=== PATIENT | male | born 1945 | race Caucasian/White ===

== ENCOUNTER 2016-07-06 16:35 | Inpatient (IN) | payer MEDICARE, OTHER ==
--- NOTE | ~2016-07-06 | OP ---
Record Of Operation [facility] [address] [place]. [address] NAME: TREMAYNE MADISON : 45 STATUS : ADM IN PAT#: [id number] AGE: 70 ADM/REG DATE : 07/06/16 MR#: [id number] REPORT SERV DATE: 07/09/16 DICTATED BY: CHALO WISE DATE: 07/09/16 REPORT STATUS : Draft TRANSCRIBED BY: MODL DATE: 07/09/16 DATE OF PROCEDURE: 07/09/2016 INDICATION: Acute coronary syndrome in a patient with previous bypass. PROCEDURE: Left heart catheterization, coronary arteriography, saphenous vein graft arteriography, left internal mammary arteriography, PCI/stent of mid LAD through left internal mammary artery bypass graft. DESCRIPTION OF PROCEDURE: After informed consent was obtained, the patient was taken in a fasting state to the cardiac catheterization laboratory, where he was prepped and draped in sterile fashion. IV moderate sedation was obtained using intravenous Versed and Fentanyl. The right inguinal region was anesthetized using 1% Xylocaine. The right femoral artery was then entered using a front wall approach and cannulated with a 6-Prydeinig arterial sheath. A 6-Prydeinig internal mammary artery catheter was then used to engage the left internal mammary artery to the mid LAD. Angiogram was obtained. This catheter was then used to engage the [place] right coronary artery. An angiogram of this vessel was obtained. This catheter was then withdrawn and the short 6-Prydeinig arterial sheath was exchanged over the wire for a long 6-Prydeinig arterial sheath. A 6-Prydeinig JL4 diagnostic catheter was then used to engage the left main coronary artery. Serial angiograms were obtained. This catheter was then exchanged for a 6-Prydeinig multipurpose catheter, which was used to engage the saphenous vein graft to the posterior descending artery. Saphenous vein graft to the obtuse marginal artery is known to be occluded and was not selectively engaged. RESULTS OF DIAGNOSTIC ANGIOGRAPHY: HEMODYNAMICS: Aorta 140/60 with a mean pressure 85 mmHg, left ventricle 140/11 with end- diastolic pressure of 24 mmHg. CORONARY ANATOMY: 1. Left main coronary artery: The left main coronary artery arises normally from left coronary cusp. This vessel is free of significant disease. 2. Left anterior descending artery: The left anterior descending artery arises normally from left main coronary artery. This vessel is subtotally occluded after the first diagonal artery. 3. Left internal mammary artery to the mid LAD is widely patent. However, there is a 90% stenosis in the [place] vessel just distal to the anastomosis. 4. Ramus intermedius: The ramus intermedius arises normally from left main coronary artery. This vessel has a 50% proximal stenosis. 5. Left circumflex artery: The left circumflex artery arises normally from the left main coronary artery. This is a small nondominant vessel which is diffusely diseased throughout with lesions of 80% to 90%. 6. Right coronary artery: The right coronary artery arises normally from the right coronary cusp. This vessel is subtotally occluded proximally. Significant collateral filling of the distal right coronary artery is visualized via the left anterior descending artery. Record Of Operation [place] [id number] [facility] [place]. [address] NAME: TREMAYNE MADISON : 45 STATUS : ADM IN PAT#: [id number] AGE: 70 ADM/REG DATE : 07/06/16 MR#: [id number] REPORT SERV DATE: 07/09/16 DICTATED BY: CHALO WISE DATE: 07/09/16 REPORT STATUS : Draft TRANSCRIBED BY: MODSammi DATE: 07/09/16 After the above findings, it was decided to proceed with PCI and stenting of the mid LAD via the left internal mammary artery graft. A 6-Prydeinig internal mammary artery guiding catheter was used with ChoICE PT 0.014 x 182 cm extra support wire across the lesion. A [employer] Emerge 2.0 x 15 mm balloon was then introduced. Two overlapping inflations were performed at 6 atmospheres for 20 seconds each. This balloon was then withdrawn and a [employer] REBEL 2.25 x 20 mm bare-metal stent was carefully positioned, deployed using 11 atmospheres for 30 seconds. Additional inflation was performed at 18 atmospheres for 30 seconds (diameter of 2.25 mm). Repeat angiography revealed a 0% residual stenosis with no dissection, flap, thrombus, embolization, or occlusion apparent. There was JOAN-3 grade flow following the procedure and improved flow to the distal right coronary artery via collaterals. COMPLICATIONS: There were no apparent complications. CONCLUSIONS: 1. Severe [place] vessel coronary artery disease as described above. 2. Occluded saphenous vein grafts to posterior descending artery and obtuse marginal artery. 3. Patent [place] to mid LAD. 4. Successful PCI/stent of the [place] mid LAD via left internal mammary artery bypass graft. 80-90% stenosis reduced to 0% stenosis using a [employer] REBEL 2.25 x 20 mm bare-metal stent post dilated to 2.5 mm. 5. No apparent complications. /KALEY Chalo Wise M.D., [facility] / [id number] CC: Chalo Wise M.D., [facility] Leslee Richardson MD
--- NOTE | ~2016-07-06 | DS ---
Discharge Summary [facility] [address] [place]. [address] NAME: TREMAYNE MADISON : 45 STATUS : DIS IN PAT#: [id number] AGE: 70 ADM/REG DATE : 07/06/16 MR#: [id number] REPORT SERV DATE: 07/21/16 DICTATED BY: CHALO WISE DATE: 07/20/16 REPORT STATUS : Draft TRANSCRIBED BY: MODSammi DATE: 07/20/16 Data Collection from hospitalization DISCHARGE DIAGNOSES: 1. Acute coronary syndrome. 2. Coronary artery disease. 3. Heart failure-ejection fraction-acute on chronic. 4. Paroxysmal atrial fibrillation. 5. Mitral regurgitation. 6. Type 2 diabetes mellitus. 7. Hypertension. 8. Hyperlipidemia. 9. Mild cerebrovascular disease. 10.Stage 3 chronic kidney disease. 11.History of testicular cancer. 12.Gastroesophageal reflux disease. 13.History of skin cancer. 14.Anemia. 15.History of myocardial infarction. 16.Degenerative disk disease. CONSULTATION: Jeannette Khan NP PROCEDURES PERFORMED: Left heart catheterization, coronary arteriography, saphenous vein graft arteriography, left internal mammary arteriography, percutaneous coronary intervention/stent of the mid LAD through left internal mammary artery bypass graft, 07/09/2016. DISCHARGE MEDICATIONS: Tylenol 1000 mg twice a day as needed, Zyloprim 300 mg daily, Eliquis 5 mg twice a day, Bumex 1 mg daily, Coreg 3.125 mg twice a day, vitamin D 1000 units daily, Plavix 75 mg daily, Cartia XT 120 mg daily, ferrous sulfate 325 mg daily, Glucotrol 2.5 mg twice a day, Apresoline 25 mg twice a day, Avapro 300 mg daily, Claritin 10 mg daily, Prilosec 40 mg daily, Pravachol 40 mg at bedtime. CONDITION AT DISCHARGE: Stable. DISPOSITION: The patient was discharged home on a low-sodium, low-cholesterol, cardiac diet with activities as instructed. He would follow up with me, 08/03/2016. He would follow up with Dr. Matteo Lewis, 07/13/2016. HOSPITAL COURSE: This is a 70-year-old man, who I have followed for paroxysmal atrial fibrillation and coronary artery disease. The patient reports that he had been doing well and in fact, he was seen in the office three weeks prior to this admission and he had no complaints. He said that approximately three days prior to this admission, he began to experience increasing shortness of breath with orthopnea and paroxysmal nocturnal dyspnea. He denied any syncope or presyncope. He had noticed some tachy palpitations. He denied chest pain, but did have some shoulder pain. EKG was significant for atrial fibrillation with PVCs. There were nonspecific ST-T wave abnormalities. There was no acute injury Discharge Summary [address] [place]. [address] NAME: TREMAYNE MADISON : 45 STATUS : DIS IN PAT#: [id number] AGE: 70 ADM/REG DATE : 07/06/16 MR#: [id number] REPORT SERV DATE: 07/21/16 DICTATED BY: CHALO WISE DATE: 07/20/16 REPORT STATUS : Draft TRANSCRIBED BY: KALEY DATE: 07/20/16 pattern and no evidence of recent or remote myocardial infarction. Troponin was elevated at 0.06. Creatinine level was 1.91. He was felt to have congestive heart failure and atrial fibrillation with rapid ventricular response. He has chronic kidney disease and hypertension. Diuresis was going to be performed as well as rate control. We would check serial troponins and an echocardiogram. It was felt that he may require a cardiac catheterization depending on his clinical course. He was admitted to the hospital at this time for further evaluation and treatment. Upon admission, serial troponins would be obtained. Rate control was being provided. The following day, he did have some shoulder pain. His lungs were clear. He had 1 to 2+ lower extremity edema. Troponin was 0.06. Echocardiogram was performed. He was seen by Jeannette Khan regarding left shoulder pain. The patient had had no relief of his left shoulder pain with oral pain medication. We were unable to provide morphine for pain control. He is allergic to sulfa. We were going to use low-dose Dilaudid if his pain was unable to be released by oral pain medications. He said that he has a history of injuring that shoulder and had had limited range of motion since that time. His heart rate had been in the 70s and he had no shortness of breath. IV hydralazine would be given as needed for systolic blood pressure greater than 170 or diastolic greater than 90. Baseline creatinine is 1.9. He does have stage 3 chronic kidney disease. BMP was going to be ordered as well as gentle IV fluid hydration in preparation for cardiac catheterization. Glipizide was discontinued and he was placed on level 2 sliding scale insulin. Hemoglobin A1c was going to be checked. On the , he said he had good pain control with oral medications. Currently, his pain was a 3/10. Sliding scale insulin continued. On the , INR level was 1.7. He had no edema. His lungs were clear. He was taken to the cardiac medical laboratory specialist, where he underwent the above- mentioned procedure. He tolerated this well and there were no complications. Discharge planning was performed. On 07/10/2016, he said he felt much better. He had no new complaints. Discharge instructions were given. Due to his improved and stable condition, he was discharged home with the above-stated instructions. Information collected by: Payal Fierro I submit the above information as my discharge summary. TG/MODL Chalo Wise M.D., [facility] / [id number] CC: Chalo Wise M.D., [facility] [place]
--- NOTE | ~2016-07-06 | CN ---
Consultation Report [facility] [address] [place]. [address] NAME: TREMAYNE MADISON : 45 STATUS : ADM IN PAT#: [id number] AGE: 70 ADM/REG DATE : 07/06/16 MR#: [id number] REPORT SERV DATE: 07/08/16 DICTATED BY: DATE: REPORT STATUS : Draft TRANSCRIBED BY: MODL DATE: 07/07/16 CONSULTATION NOTE. DATE OF CONSULTATION: 07/07/2016 REASON FOR CONSULTATION: Left shoulder pain. IDENTIFYING DATA: PRIMARY CARE PHYSICIAN: Leslee Richardson M.D. CARDIOLOGY: Chalo Brunner M.D., [facility]. RENAL: Johnathan Frazier M.D. HISTORY OF PRESENT ILLNESS: This is a 70-year-old male, who has been admitted to the hospital for paroxysmal atrial fibrillation with RVR who had been experiencing increasing shortness of breath during the day and at bedtime. The patient had also stated some palpations. Please see admitting H and P by Dr. Chalo Brunner on 07/06/2016. Upon admission last night, the patient had been pulling himself up in the bed and states he had tearing shoulder pain. The patient states he has history of pain in that shoulder that extends back to over 40 years ago when it was hurt and he has had limited range of motion since then. He has never had any type of generalized examination besides getting a steroid shot years ago and has limited his activity with that arm. The patient also has a history of coronary artery disease and is status post bypass. The patient will be going for a heart catheterization tomorrow to evaluate his paroxysmal atrial fib. The patient's history was obtained through careful interview with the patient and his coupled with review in [facility] and [facility]. PAST MEDICAL HISTORY: Significant for hypertension, hyperlipidemia, coronary artery disease, mild cerebrovascular disease, chronic kidney disease stage 3, paroxysmal atrial fib, testicular cancer, GI bleed, renal stents, GERD, skin cancer, anemia, CA, degenerative disc disease, diabetes mellitus type 2, and CHF. HOME MEDICATIONS: The patient is on Tylenol 1000 mg twice daily for pain; allopurinol 300 mg daily; Bumex 1 mg daily; vitamin D 1000 units daily; Diltiazem ER 120 mg daily; Pepcid 40 mg twice daily; ferrous sulfate 325 mg daily; Glucotrol 2.5 mg p.o. twice daily; hydralazine 25 mg twice daily; Avapro 300 mg daily; Claritin 10 mg daily; omeprazole 40 mg; Pravachol 40 mg; dmcz-pbi-rmrycwo potassium; Coumadin 3 mg on Saturdays and 5 mg on Wednesday, Wednesday, Wednesday, and Wednesday. ALLERGIES: THE PATIENT STATES ALLERGY TO SULFA IN WHICH HE GETS HIVES. 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 He lives Consultation [address] [address] NAME: TREMAYNE MADISON : 45 STATUS : ADM IN [facility]#: [id number] AGE: 70 ADM/REG DATE : 07/06/16 MR#: [id number] REPORT SERV DATE: 07/08/16 DICTATED BY: DATE: REPORT STATUS : Draft TRANSCRIBED BY: MODL DATE: 07/07/16 with his spouse and states that he walks regularly. The patient denies illicit drug use, tobacco use or alcohol use. FAMILY HISTORY: Mother had arthritis, and of lung cancer due to tobacco. Father had a CABG at age 65 and at age 75 of an CA. PAST SURGICAL HISTORY: The patient has had a CABG, left orchidectomy 31 years ago with radiation, left partial nephrectomy 28 years ago due to atrophy, cholecystectomy, COA, stents in both kidneys, tonsils and adenoids removed, the patient states current pain in his left shoulder is constant. REVIEW OF SYSTEMS: Full 10-point review of systems was obtained with pertinent positives mentioned in the HPI. PHYSICAL EXAMINATION: VITAL SIGNS: From today, blood pressure 163/84, O2 saturation 96% on room air, respirations 18, heart rate is 70, and temp is 97.0. GENERAL: The patient is an obese male, resting in bed, in no acute distress. NEUROLOGIC: Head is atraumatic and normocephalic. The patient is extremely hard of hearing in both ears. The patient is alert and oriented x3. Cranial nerves 2 through 12 are grossly intact. NECK: Supple. Trachea is midline. Neck veins are flat. No obvious thyromegaly or lymphadenopathy. EENT: Sclerae are nonicteric. Pupils are equal, round, reactive to light and accommodation. Nares are patent. Mucous membranes are moist. Extraocular muscles within normal limits. Tongue is midline without deviation. CHEST: Chest has no pain with palpation. LUNGS: Clear to auscultation bilaterally with normal respiratory effort. CARDIOVASCULAR: S1 and S2 with no obvious murmurs, rubs, or gallops. Rhythm is irregularly irregular. ABDOMEN: Soft and nontender with active bowel sounds. No palpable organomegaly. Last bowel movement was on 07/07/2016. EXTREMITIES: No significant edema, clubbing, or cyanosis. Pedal pulses are present and equal bilaterally. SKIN: Skin is warm and dry with no unusual rashes or skin lesions. Normal color and turgor. PSYCH: The patient is pleasant and cooperative. LABORATORY DATA: Labs from 07/06/2016: Sodium is 144, potassium is 3.9, chloride is 110, BUN is 33, creatinine is 1.91, GFR is 40, glucose 138, calcium is 8.9, and magnesium is 2.1. WBC is 7.1, hemoglobin is 12.4, hematocrit is 38.3, and platelets are 160. INR is 2.2. Troponin is 0.06. ASSESSMENT AND PLAN: Consultation Report [place] [id number] [facility] [place]. [address] NAME: TREMAYNE MADISON : 45 STATUS : ADM IN [facility]#: [id number] AGE: 70 ADM/REG DATE : 07/06/16 MR#: [id number] REPORT SERV DATE: 07/08/16 DICTATED BY: DATE: REPORT STATUS : Draft TRANSCRIBED BY: MODL DATE: 07/07/16 1. Left shoulder pain, acute on chronic. The patient is allergic to sulfa, and the patient has had no relief with any p.o. pain medicines, so we are unable to provide morphine for pain control. The patient is uncertain as to whether he has ever had this before, but states he gets hives with sulfa, so we are using low-dose Dilaudid if unable to be relieved by p.o. pain medicine. The patient states he has had a history of injuring that shoulder before and has had limited range of motion since that time. 2. Atrial fibrillation with rapid ventricular response. The patient's heart rate has been in the 70s and has no shortness of breath. 3. Congestive heart failure. We have ordered a BMP and Mag in the morning. 4. Hypertension. The patient's blood pressures have been 163/84, 172/79, 154/101. The patient is on multiple medications for this including diltiazem, irbesartan, and hydralazine. We have ordered IV hydralazine p.r.n. for any systolic blood pressure greater than 170 or diastolic greater than 90. 5. Chronic kidney disease, stage 3, with baseline creatinine of 1.9. The patient's creatinine is at baseline. The patient's baseline BUN is 35 and is at baseline. The patient's GFR is 38 and is currently at baseline. We have ordered BMP as well as gentle IV fluid hydration and preparation for his heart catheterization tomorrow. We are discontinuing his glipizide and starting him on sliding scale level 2. 6. Diabetes mellitus type 2. We are ordering an A1c in the morning as well as using sliding scale insulin level 2 at a.c. and h.s. and 0200 hours, and discontinuing his glipizide. We would like to take the time to thank you for this consultation. We would recommend an Orthopedic consult upon discharge and when cleared by Dr. Brunner. We will continue to follow this patient with you until it is time for him to be discharged. Please let us know if we can be of any further assistance. SLC/MODL Jeannette Khan NP / [id number] CC: Chalo Brunner M.D., [facility] Leslee Richardson MD
--- NOTE | ~2016-07-06 | HP ---
History And Physical [place] [id number] [facility] [place]. [address] NAME: TREMAYNE LIN : 45 STATUS : ADM IN [facility]#: [id number] AGE: 70 ADM/REG DATE : 07/06/16 MR#: [id number] REPORT SERV DATE: 07/07/16 DICTATED BY: CHALO WISE DATE: 07/07/16 REPORT STATUS : Draft TRANSCRIBED BY: MODL DATE: 07/07/16 DATE OF ADMISSION: 07/06/2016 HISTORY OF PRESENT ILLNESS: Mr. Tremayne Lin is a 70-year-old gentleman who I follow for paroxysmal atrial fibrillation and coronary artery disease. The patient reports that he had been doing well, in fact I saw him in the office three weeks ago and he was without complaints, he states that approximately three days ago he began experiencing increasing shortness of breath with orthopnea and paroxysmal nocturnal dyspnea. He denies any syncope or presyncope. He has noticed some tachy palpitations. He denies any chest pain but has noted some shoulder pain. REVIEW OF SYSTEMS: As above, otherwise, noncontributory. Patient specifically denies any gastrointestinal, genitourinary or neurologic complaints. FAMILY HISTORY: Noncontributory. MEDICATIONS: Prior to admission, see list. PAST MEDICAL HISTORY: As noted above. Significant for coronary artery disease. The patient is status post previous bypass. He also has history of hypertension and hyperlipidemia. He has a history of mild cerebrovascular disease. He has chronic kidney disease. He has paroxysmal atrial fibrillation which has been more troublesome in the last year or two. The patient is status post left testicular cancer. He is status post left partial nephrectomy. SOCIAL HISTORY: The patient does not smoke. ALLERGIES: THE PATIENT REPORTS ALLERGIES TO SULFA. HE HAD A PREVIOUS GI BLEED AND HAS BEEN HESITANT TO TAKE ASPIRIN. PHYSICAL EXAMINATION: VITAL SIGNS: On admission, blood pressure 177/86, pulse 94, respiratory rate 20. The patient is afebrile. GENERAL: This is a well-developed, well-nourished, 70-year-old, white male, alert and oriented x3 in no acute distress. NECK: No jugular venous distention, hepatojugular reflux. CARDIOVASCULAR: Normal rate with irregular rhythm. 1/6 holosystolic murmur which radiates to the apex. LUNGS: Diminished breath sounds in the bases. No rales are appreciated. EXTREMITIES: 1+ bilateral pitting edema. IMAGING: EKG significant for atrial fibrillation with PVCs. There are nonspecific ST-T wave abnormalities. There is no acute injury pattern and no evidence of recent or remote myocardial infarction. LABORATORY DATA: Significant for an elevated troponin at 0.06. Patient's hematocrit is History And Physical [address] [address] NAME: TREMAYNE LIN : 45 STATUS : ADM IN PAT#: [id number] AGE: 70 ADM/REG DATE : 07/06/16 MR#: [id number] REPORT SERV DATE: 07/07/16 DICTATED BY: CHALO WISE DATE: 07/07/16 REPORT STATUS : Draft TRANSCRIBED BY: KALEY DATE: 07/07/16 38.3. BUN and creatinine 33 and 1.91. ASSESSMENT: 1. Atrial fibrillation with rapid ventricular response. 2. Congestive heart failure (BNP 614). 3. Hypertension. 4. Chronic kidney disease. PLAN: 1. Diuresis. 2. Rate control. 3. Serial troponins. 4. Check echocardiogram. 5. May require cardiac catheterization depending on clinical course. /KALEY Chalo Wise M.D., [facility] / [id number] CC: Chalo Wise M.D., [facility] [place]
[2016-07-06 14:25] LABS: BASOPHILS 0.1 %; BASOPHILS ABSOLUTE 0.01 10/3/uL (0.0-0.16); EOSINOPHILS 1.8 %; EOSINOPHILS ABSOLUTE 0.13 10/3/uL (0.0-0.53); ER CBC TAT 0 Hrs 05 Mins; HEMATOCRIT 38.3 % (40.0-51.0); HEMOGLOBIN 12.4 g/dL (13.6-17.8); LYMPHOCYTES 19.6 %; LYMPHOCYTES ABSOLUTE 1.38 10/3/uL (0.67-4.30); MANUAL DIFF NO %; MEAN CORPUS HGB CONC 32.4 g/dL (32.0-36.0); MEAN PLATELET VOLUME 10.6 fL (9.2-13.0); MONOCYTES 5.1 %; MONOCYTES ABSOLUTE 0.36 10/3/uL (0.21-1.20); NEUTROPHILS 73.4 %; NEUTROPHILS ABSOLUTE 5.17 10/3/uL (2.02-8.40); PLATELET COUNT 160 10/3/uL (150-400); RBC DISTRIBUTION WIDTH 16.4 % (12.0-16.0); RED CELL COUNT 3.87 10/6/uL (4.7-6.1); WHITE BLOOD CELLS 7.1 10/3/uL (4.5-10.5)
[2016-07-06 14:33] LABS: PROTIME (NOT ORD) 22.8 SEC (12.0-14.5)
[2016-07-06 14:34] LABS: PARTIAL THROMBO TIME 38.5 SEC (22.5-37.2)
[2016-07-06 14:41] LABS: CALCIUM, SERUM 8.9 MG/DL (8.5-10.4); CHLORIDE, SERUM 110 MMOL/L (96-112); CO2 (CARBON DIOXIDE) 23 MMOL/L (24-34); CREATININE 1.91 MG/DL (0.70-1.30); GFR AFRICAN AMERICAN 40 ML/MIN (>=60); GFR NON AFRICAN AMERICAN 35 ML/MIN (>=60); POTASSIUM, SERUM 3.9 MMOL/L (3.5-5.3); SODIUM, SERUM 144 MMOL/L (135-148)
[2016-07-06 14:42] LABS: BUN (BLOOD UREA NITROGEN) 33 MG/DL (6-23); GLUCOSE, SERUM 138 MG/DL (60-99)
[2016-07-06 14:52] LABS: TROPONIN I 0.06 NG/ML (<0.05)
[2016-07-06 14:56] LABS: CHEST PAIN PROFILE TAT 0 Hrs 32 Mins
[~2016-07-06 16:35] MED LIST: ASABAYER PO; ATEN25 PO; BUM1 PO; CARDU4 PO; FISH-EPA1000 MG PO; FOLGARD PO; GLUCOTROL5 PO; KLOR-CON 88 MEQ PO; MICARDIS H80 MG/25 M PO; NORV5 PO; NTG; VITC500 PO; Z100 PO; ZOCOR80 MG PO
[2016-07-06] MEDS ORDERED: APRES25 PO (16:52)
[2016-07-06] MEDS ORDERED: GLUCOTROL5 PO (16:52)
[2016-07-06] MEDS ORDERED: CARTIA XT120 MG/24 PO (16:52)
[2016-07-06] MEDS ORDERED: C5 PO (16:53)
[2016-07-06] MEDS ORDERED: CLARIT10 PO (16:54)
[2016-07-06] MEDS ORDERED: COUMADIN3 MG PO (16:54)
[2016-07-06] MEDS ORDERED: BUM1 PO (16:54)
[2016-07-06] MEDS ORDERED: ACET500CAP PO (16:55)
[2016-07-06] MEDS ORDERED: VITAMIN D1000 UNI1 PO (16:55)
[2016-07-06] MEDS ORDERED: POTASSIUM OTC PO (16:55)
[2016-07-06] MEDS ORDERED: PRAVACHOL40 MG PO (16:55)
[2016-07-06] MEDS ORDERED: FERROUS SULF325 M1 PO (16:55)
[2016-07-06] MEDS ORDERED: PEPCID40 MG PO (16:56)
[2016-07-06] MEDS ORDERED: AVAPRO300 MG PO (16:56)
[2016-07-06] MEDS ORDERED: PRILOSEC40 MG PO (16:56)
[2016-07-06] MEDS ORDERED: Z300 PO (16:56)
[2016-07-07 06:36] LABS: INTERNATIONAL NORMAL RATI 2.2 UNITS (-); PROTIME (NOT ORD) 24.2 SEC (12.0-14.5)
[2016-07-08 04:33] LABS: BASOPHILS 0.1 %; BASOPHILS ABSOLUTE 0.01 10/3/uL (0.0-0.16); EOSINOPHILS 2.1 %; EOSINOPHILS ABSOLUTE 0.15 10/3/uL (0.0-0.53); HEMATOCRIT 34.9 % (40.0-51.0); HEMOGLOBIN 11.3 g/dL (13.6-17.8); IMMATURE GRANULOCYTES 0.6 %; IMMATURE GRANULOCYTES ABSOLUTE 0.04 10/3/uL (0.0-0.11); LYMPHOCYTES ABSOLUTE 0.99 10/3/uL (0.67-4.30); MEAN CORPUS HGB CONC 32.4 g/dL (32.0-36.0); MEAN CORPUSCULAR VOLUME 98.9 fL (80-100); MEAN PLATELET VOLUME 11.2 fL (9.2-13.0); MONOCYTES 5.9 %; MONOCYTES ABSOLUTE 0.42 10/3/uL (0.21-1.20); NEUTROPHILS 77.3 %; NEUTROPHILS ABSOLUTE 5.47 10/3/uL (2.02-8.40); PLATELET COUNT 152 10/3/uL (150-400); RBC DISTRIBUTION WIDTH 16.1 % (12.0-16.0); RED CELL COUNT 3.53 10/6/uL (4.7-6.1); WHITE BLOOD CELLS 7.1 10/3/uL (4.5-10.5)
[2016-07-08 04:35] LABS: MANUAL DIFF NO %
[2016-07-08 04:41] LABS: INTERNATIONAL NORMAL RATI 2.2 UNITS (-)
[2016-07-08 04:54] LABS: BUN (BLOOD UREA NITROGEN) 32 MG/DL (6-23); CHLORIDE, SERUM 109 MMOL/L (96-112); CHOLESTEROL 151 MG/DL (< 200); CO2 (CARBON DIOXIDE) 23 MMOL/L (24-34); CREATININE 1.75 MG/DL (0.70-1.30); GFR AFRICAN AMERICAN 45 ML/MIN (>=60); GFR NON AFRICAN AMERICAN 39 ML/MIN (>=60); GLUCOSE, SERUM 163 MG/DL (60-99); POTASSIUM, SERUM 3.9 MMOL/L (3.5-5.3); SODIUM, SERUM 142 MMOL/L (135-148)
[2016-07-08 04:55] LABS: CHOL/HDL RATIO(NOT ORDER) 2.6 (0-5); HDL CHOLESTEROL 58 MG/DL (> 39); LDL CHOLESTEROL 72 MG/DL (< 130); NON-HDL CHOLESTEROL 93 MG/DL (< 160); TRIGLYCERIDE 109 MG/DL (< 150)
[2016-07-09 05:15] LABS: BASOPHILS 0.3 %; BASOPHILS ABSOLUTE 0.02 10/3/uL (0.0-0.16); EOSINOPHILS 2.2 %; EOSINOPHILS ABSOLUTE 0.17 10/3/uL (0.0-0.53); HEMATOCRIT 32.6 % (40.0-51.0); HEMOGLOBIN 10.5 g/dL (13.6-17.8); IMMATURE GRANULOCYTES 0.1 %; IMMATURE GRANULOCYTES ABSOLUTE 0.01 10/3/uL (0.0-0.11); LYMPHOCYTES 17.4 %; LYMPHOCYTES ABSOLUTE 1.34 10/3/uL (0.67-4.30); MEAN CORPUS HGB CONC 32.2 g/dL (32.0-36.0); MEAN CORPUSCULAR VOLUME 99.4 fL (80-100); MONOCYTES ABSOLUTE 0.54 10/3/uL (0.21-1.20); NEUTROPHILS ABSOLUTE 5.63 10/3/uL (2.02-8.40); PLATELET COUNT 136 10/3/uL (150-400); RED CELL COUNT 3.28 10/6/uL (4.7-6.1); WHITE BLOOD CELLS 7.7 10/3/uL (4.5-10.5)
[2016-07-09 05:17] LABS: MANUAL DIFF NO %
[2016-07-09 05:20] LABS: INTERNATIONAL NORMAL RATI 1.7 UNITS (-)
[2016-07-09 05:25] LABS: PROTIME (NOT ORD) 19.9 SEC (12.0-14.5)
[2016-07-09 05:30] LABS: CALCIUM, SERUM 8.6 MG/DL (8.5-10.4); CHLORIDE, SERUM 107 MMOL/L (96-112); CHOL/HDL RATIO(NOT ORDER) 2.3 (0-5); CHOLESTEROL 126 MG/DL (< 200); CO2 (CARBON DIOXIDE) 22 MMOL/L (24-34); GFR AFRICAN AMERICAN 38 ML/MIN (>=60); GFR NON AFRICAN AMERICAN 33 ML/MIN (>=60); GLUCOSE, SERUM 166 MG/DL (60-99); HDL CHOLESTEROL 55 MG/DL (> 39); LDL CHOLESTEROL 57 MG/DL (< 130); NON-HDL CHOLESTEROL 71 MG/DL (< 160); POTASSIUM, SERUM 4.5 MMOL/L (3.5-5.3); SODIUM, SERUM 139 MMOL/L (135-148)
[2016-07-09 05:31] LABS: BUN (BLOOD UREA NITROGEN) 40 MG/DL (6-23); TRIGLYCERIDE 73 MG/DL (< 150)
[2016-07-09 05:33] LABS: PARTIAL THROMBO TIME 150.4 SEC (22.5-37.2)
[2016-07-10 05:17] LABS: INTERNATIONAL NORMAL RATI 1.4 UNITS (-)
[2016-07-10 05:20] LABS: PROTIME (NOT ORD) 16.6 SEC (12.0-14.5)
[2016-07-10 11:42] LABS: BUN (BLOOD UREA NITROGEN) 42 MG/DL (6-23); CALCIUM, SERUM 9.1 MG/DL (8.5-10.4); CHLORIDE, SERUM 107 MMOL/L (96-112); CO2 (CARBON DIOXIDE) 26 MMOL/L (24-34); CREATININE 2.48 MG/DL (0.70-1.30); GFR AFRICAN AMERICAN 29 ML/MIN (>=60); GFR NON AFRICAN AMERICAN 25 ML/MIN (>=60); GLUCOSE, SERUM 182 MG/DL (60-99); SODIUM, SERUM 139 MMOL/L (135-148)
[2016-07-10 11:43] LABS: POTASSIUM, SERUM 4.6 MMOL/L (3.5-5.3)
[2016-07-10] MEDS ORDERED: ELIQUIS 5 MG TAB5 MG PO (14:23)
[2016-07-10] MEDS ORDERED: COREG3 PO (14:24)
[2016-07-10] MEDS ORDERED: PLAVIX PO (14:24)
[2016-10-18] MEDS ORDERED: AVAPRO300 MG PO (01:14)
[2016-10-18] MEDS ORDERED: COREG3 PO (01:14)
[2016-10-18] MEDS ORDERED: BUM1 PO (01:15)
[2016-10-18] MEDS ORDERED: CLARIT10 PO (01:15)
[2016-10-18] MEDS ORDERED: Z300 PO (01:15)
[2016-10-18] MEDS ORDERED: GLUCOTROL5 PO (01:16)
[2016-10-18] MEDS ORDERED: MICRO-K10 MEQ PO (01:17)
[2016-10-18] MEDS ORDERED: C5 PO (01:18)
[2016-10-18] MEDS ORDERED: VITAMIN B-121000 MC1 PO (01:18)
[2016-10-18] MEDS ORDERED: CARTIA XT120 MG/24 PO (01:19)
[2016-10-18] MEDS ORDERED: COUMADIN3 MG PO (01:19)
[2016-10-18] MEDS ORDERED: PLAVIX PO (01:20)
[2016-10-18] MEDS ORDERED: COLCH6 PO (01:20)
[2016-10-18] MEDS ORDERED: TUMS E-X750 M2 PO (01:21)
[2016-10-18] MEDS ORDERED: APRES25 PO (01:22)
[2016-10-18] MEDS ORDERED: PRAVACHOL40 MG PO (01:24)
[2016-10-24] MEDS ORDERED: SUCR PO (13:03)
[2016-10-24] MEDS ORDERED: PROTONIX PO (13:04)
== END 2016-07-10 16:00 | disposition home or self-care (01) | DRG 248 ==
LOC: ER 16:35 → 7NO 16:43 → SSU1 07-09 08:29
PROVIDERS: Emergency Medicine; Internal Medicine Interventional Cardiology; Nurse Practitioner Family
PROC: 02703DZ Dilation of Coronary Artery, One Artery with Intraluminal Device, Percutaneous Approach (ICD-10-PCS; principal; 2016-07-09)
PROC: 4A023N7 Measurement of Cardiac Sampling and Pressure, Left Heart, Percutaneous Approach (ICD-10-PCS; 2016-07-09)
PROC: B2131ZZ Fluoroscopy of Multiple Coronary Artery Bypass Grafts using Low Osmolar Contrast (ICD-10-PCS; 2016-07-09)
PROC: B2181ZZ Fluoroscopy of Left Internal Mammary Bypass Graft using Low Osmolar Contrast (ICD-10-PCS; 2016-07-09)
PROC: B2111ZZ Fluoroscopy of Multiple Coronary Arteries using Low Osmolar Contrast (ICD-10-PCS; 2016-07-09)
PROC: B2151ZZ Fluoroscopy of Left Heart using Low Osmolar Contrast (ICD-10-PCS; 2016-07-09)
DX: I25.720 Atherosclerosis of autologous artery coronary artery bypass graft(s) with unstable angina pectoris (principal); I50.23 Acute on chronic systolic (congestive) heart failure; E11.22 Type 2 diabetes mellitus with diabetic chronic kidney disease; I48.0 Paroxysmal atrial fibrillation; I13.0 Hypertensive heart and chronic kidney disease with heart failure and stage 1 through stage 4 chronic kidney disease, or unspecified chronic kidney disease; I25.110 Atherosclerotic heart disease of native coronary artery with unstable angina pectoris; I67.9 Cerebrovascular disease, unspecified; N18.9 Chronic kidney disease, unspecified; I49.3 Ventricular premature depolarization; E78.5 Hyperlipidemia, unspecified; N18.3 Chronic kidney disease, stage 3 (moderate); K21.9 Gastro-esophageal reflux disease without esophagitis; D64.9 Anemia, unspecified; Z95.1 Presence of aortocoronary bypass graft; I25.2 Old myocardial infarction; Z85.47 Personal history of malignant neoplasm of testis; Z90.5 Acquired absence of kidney; Z88.2 Allergy status to sulfonamides; Z82.61 Family history of arthritis; Z80.1 Family history of malignant neoplasm of trachea, bronchus and lung; Z82.49 Family history of ischemic heart disease and other diseases of the circulatory system; Z98.890 Other specified postprocedural states
CPT/HCPCS: 71020; 73030-LT; 80048; 80061; 82962; 83036; 83735; 83880; 84484; 85025; 85610; 85730; 93005; 93459; 99152; 99153; 99285; A9270-GY; C1725; C1769; C1876; C1887; C1894; C8929; C9604; J0583; J1940; J2250; J3010; Q9957; Q9967

== ENCOUNTER 2016-08-30 13:43 | Emergency (ER) | payer MEDICARE, OTHER ==
[~2016-08-30 13:43] MED LIST changes: +ACET500CAP PO; +APRES25 PO; +AVAPRO300 MG PO; +C5 PO; +CARTIA XT120 MG/24 PO; +CLARIT10 PO; +COREG3 PO; +COUMADIN3 MG PO; +ELIQUIS 5 MG TAB5 MG PO; +FERROUS SULF325 M1 PO; +PEPCID40 MG PO; +PLAVIX PO; +POTASSIUM OTC PO; +PRAVACHOL40 MG PO; +PRILOSEC40 MG PO; +VITAMIN D1000 UNI1 PO; +Z300 PO
[2016-08-30 13:57] LABS: BASOPHILS 0.4 %; BASOPHILS ABSOLUTE 0.02 10/3/uL (0.0-0.16); EOSINOPHILS 2.4 %; EOSINOPHILS ABSOLUTE 0.13 10/3/uL (0.0-0.53); HEMATOCRIT 32.9 % (40.0-51.0); HEMOGLOBIN 10.4 g/dL (13.6-17.8); IMMATURE GRANULOCYTES 0.2 %; IMMATURE GRANULOCYTES ABSOLUTE 0.01 10/3/uL (0.0-0.11); LYMPHOCYTES 19.6 %; LYMPHOCYTES ABSOLUTE 1.05 10/3/uL (0.67-4.30); MEAN CORPUS HGB CONC 31.6 g/dL (32.0-36.0); MEAN CORPUSCULAR HEMOGLOB 31.8 pg (26.0-34.0); MEAN CORPUSCULAR VOLUME 100.6 fL (80-100); MEAN PLATELET VOLUME 10.2 fL (9.2-13.0); MONOCYTES 4.5 %; MONOCYTES ABSOLUTE 0.24 10/3/uL (0.21-1.20); NEUTROPHILS 72.9 %; NEUTROPHILS ABSOLUTE 3.92 10/3/uL (2.02-8.40); PLATELET COUNT 169 10/3/uL (150-400); RBC DISTRIBUTION WIDTH 16.2 % (12.0-16.0); RED CELL COUNT 3.27 10/6/uL (4.7-6.1); WHITE BLOOD CELLS 5.4 10/3/uL (4.5-10.5)
[2016-08-30 13:59] LABS: MANUAL DIFF NO %
[2016-08-30 14:14] LABS: BUN (BLOOD UREA NITROGEN) 41 MG/DL (6-23); CHEST PAIN PROFILE TAT 0 Hrs 21 Mins; CHLORIDE, SERUM 113 MMOL/L (96-112); CO2 (CARBON DIOXIDE) 22 MMOL/L (24-34); GFR AFRICAN AMERICAN 41 ML/MIN (>=60); GFR NON AFRICAN AMERICAN 35 ML/MIN (>=60); GLUCOSE, SERUM 196 MG/DL (60-99); POTASSIUM, SERUM 4.1 MMOL/L (3.5-5.3); SODIUM, SERUM 143 MMOL/L (135-148); TROPONIN I 0.04 NG/ML (<0.05)
[2016-08-30 14:15] LABS: CREATININE 1.88 MG/DL (0.70-1.30)
[2016-08-30 14:17] LABS: INTERNATIONAL NORMAL RATI 1.2 UNITS (-); PROTIME (NOT ORD) 15.4 SEC (12.0-14.5)
[2016-10-18] MEDS ORDERED: COREG3 PO (01:14)
[2016-10-18] MEDS ORDERED: AVAPRO300 MG PO (01:14)
[2016-10-18] MEDS ORDERED: CLARIT10 PO (01:15)
[2016-10-18] MEDS ORDERED: Z300 PO (01:15)
[2016-10-18] MEDS ORDERED: BUM1 PO (01:15)
[2016-10-18] MEDS ORDERED: GLUCOTROL5 PO (01:16)
[2016-10-18] MEDS ORDERED: MICRO-K10 MEQ PO (01:17)
[2016-10-18] MEDS ORDERED: VITAMIN B-121000 MC1 PO (01:18)
[2016-10-18] MEDS ORDERED: C5 PO (01:18)
[2016-10-18] MEDS ORDERED: COUMADIN3 MG PO (01:19)
[2016-10-18] MEDS ORDERED: CARTIA XT120 MG/24 PO (01:19)
[2016-10-18] MEDS ORDERED: PLAVIX PO (01:20)
[2016-10-18] MEDS ORDERED: COLCH6 PO (01:20)
[2016-10-18] MEDS ORDERED: TUMS E-X750 M2 PO (01:21)
[2016-10-18] MEDS ORDERED: APRES25 PO (01:22)
[2016-10-18] MEDS ORDERED: PRAVACHOL40 MG PO (01:24)
[2016-10-24] MEDS ORDERED: SUCR PO (13:03)
[2016-10-24] MEDS ORDERED: PROTONIX PO (13:04)
== END 2016-08-30 15:50 | disposition home or self-care (01) ==
LOC: ER 13:43
PROVIDERS: Emergency Medicine
DX: I13.0 Hypertensive heart and chronic kidney disease with heart failure and stage 1 through stage 4 chronic kidney disease, or unspecified chronic kidney disease (principal); E11.22 Type 2 diabetes mellitus with diabetic chronic kidney disease; N18.9 Chronic kidney disease, unspecified; I50.9 Heart failure, unspecified; I25.2 Old myocardial infarction; I48.91 Unspecified atrial fibrillation; Z95.1 Presence of aortocoronary bypass graft; Z88.2 Allergy status to sulfonamides; Z79.899 Other long term (current) drug therapy; Z88.8 Allergy status to other drugs, medicaments and biological substances
CPT/HCPCS: 71010; 80048; 83735; 83880; 84484; 85025; 85610; 85730; 93005; 96374; 99285